=== PATIENT | female | born 1980 | race Caucasian/White ===

== ENCOUNTER 2017-02-02 15:00 | Emergency (ER) | payer SELFPAY ==
[~2017-02-02] VITALS: Ht 157.5 cm; Wt 63.6 kg
[2017-02-02] MEDS ORDERED: HYDR-3138 PO (16:30)
[2017-02-02] MEDS ORDERED: PRED20TA PO (16:30)
[2017-02-02] MEDS ORDERED: CYCL5TAB PO (16:30)
[2017-02-02] MEDS ORDERED: KETOROLAC 30 MG/1 ML IM ONE (17:00)
[2017-02-02] MEDS ORDERED: HYDROcodone/APAP 5/325 TABLET PO ONE (17:00)
[2017-02-02] MEDS ORDERED: HYDROcodone/APAP 5/325 TABLET ONE (17:03)
[2017-02-02] MEDS ORDERED: KETOROLAC 30 MG/1 ML ONE (17:03)
[2017-02-02 18:20] VITALS: BP 117/72
== END 2017-02-02 18:53 | disposition home or self-care (01) ==
LOC: ED 16:55
DX: S39.012A Strain of muscle, fascia and tendon of lower back, initial encounter (principal); M51.36 Other intervertebral disc degeneration, lumbar region; M54.2 Cervicalgia; G89.29 Other chronic pain; M54.42 Lumbago with sciatica, left side; Z98.51 Tubal ligation status; X58.XXXA Exposure to other specified factors, initial encounter; Y93.89 Activity, other specified; Y99.8 Other external cause status; Y92.89 Other specified places as the place of occurrence of the external cause
CPT/HCPCS: 72050; 72110; 96372; 99284; J1885

== ENCOUNTER → 2017-07-18 | Outpatient (CLI) | payer MEDICAID ==
[~2017-07-18] MED LIST: CYCL5TAB PO; HYDR-3237 PO; PRED20TA PO
== END | disposition home or self-care (01) ==
LOC: CFH 13:26
PROVIDERS: ATTEND Nurse Practitioner Family
DX: Z13.6 Encounter for screening for cardiovascular disorders (principal); R07.89 Other chest pain; Z82.49 Family history of ischemic heart disease and other diseases of the circulatory system
CPT/HCPCS: 75571; 93306